=== PATIENT | male | born 1945 | race Caucasian/White ===

== ENCOUNTER 2021-11-13 11:56 | Observation (INO) | payer MEDICARE, SELFPAY ==
[2021-11-13] VITALS (9 sets, daily range): BP systolic 103–175; BP diastolic 55–84; PULSE 52–57; RESP 12–18; TEMP 35.9–36.8; O2SAT 97–100; BMI 26.4
--- NOTE | ~2021-11-13 | XR_ITS ---
EXAMINATION: XR chest 1V portable INDICATION: Transient alteration of awareness TECHNIQUE: Portable AP chest at 1320 hours COMPARISON: 12/21/2012 FINDINGS: The lungs are free of acute opacities. No pleural effusion or pneumothorax. Cardiomegaly is noted. There are changes of interval cardiac surgery. IMPRESSION: 1. No acute cardiopulmonary abnormality. Reviewed, dictated and finalized at location B.
--- NOTE | ~2021-11-13 | US_ITS ---
EXAMINATION: US carotid duplex BI DATE: 11/16/2021 11:40 INDICATION: Syncope. Cerebral atherosclerosis. TECHNIQUE: Grayscale, color Doppler, and pulsed Doppler images of the cervical carotid arteries were obtained. The degree of vessel stenosis is placed in one of the following categories: normal, <50%, 5 0-69%, >=70% but less than near-occlusion, near-occlusion, or total occlusion. Note that percent sten osis relative to normal distal artery lumen diameter is indirectly measured from velocity measurement s as described by Mo, et al. Radiology 2003; 229:340-346. COMPARISON: None. FINDINGS: RIGHT: The right common carotid artery (CCA) peak systolic velocity (PSV) is 57 cm/s. The right internal car otid artery (ICA) PSV is 119 cm/s. The right ICA end-diastolic velocity (EDV) is 25 cm/s. The right I CA/CCA PSV ratio is 2.1. Grayscale and color Doppler images yield an estimate of <50% diameter reduct ion from plaque in the ICA. The external carotid artery (ECA) PSV is 119 cm/s. There is antegrade imelda w in the right vertebral artery. LEFT: The left CCA PSV is 81 cm/s. The left ICA PSV is 84 cm/s. The left ICA EDV is 20 cm/s. The left ICA/C CA PSV ratio is 1.0. Grayscale and color Doppler images yield an estimate of <50% diameter reduction from plaque in the ICA. The ECA PSV is 94 cm/s. There is antegrade flow in the left vertebral artery. IMPRESSION: 1. <50% stenosis in the right internal carotid artery. 2. <50% stenosis in the left internal carotid artery. Reviewed, dictated and finalized at location A.
--- NOTE | ~2021-11-13 | CT_ITS ---
EXAMINATION: CT brain wo con DATE: 11/13/2021 14:32 INDICATION: Near syncope. TECHNIQUE: Computed tomography (CT) of the head was performed without intravenous contrast. The mA wa s adjusted according to patient size. Iterative reconstruction technique was employed. The dose-lengt h product was 605.33 mGy-cm. COMPARISON: Head CT 06/10/2015 FINDINGS: There are scattered areas of low attenuation in the cerebral white matter. There is no intr acranial hemorrhage, acute infarction, or abnormal intracranial mass lesion. The ventricles are aydi l in size. There are likely changes of ocular lens replacement surgeries. There is a chronic radiopaq ue foreign body in superior left orbit. The mastoid air cells are normal. There is mild mucosal thick ening in the paranasal sinuses. IMPRESSION: 1. Worsened extensive nonspecific cerebral white matter disease, which likely represents chronic smal l vessel ischemic disease. Reviewed, dictated and finalized at location A. IMPRESSION: 1. Worsened extensive nonspecific cerebral white matter disease, which likely r epresents chronic small vessel ischemic disease.
--- NOTE | 2021-11-13 12:05 | ECG_ITS ---
Measurements Intervals [place] Rate: 52 P: 10 [place]: 193 QRS: 29 QRSD: 87 T: 68 QT: 443 QTc: 414 Interpretive Statements SINUS BRADYCARDIA BORDERLINE ST-T WAVE ABNORMALITY- ANTEROLAT/HIGH LAT LEADS BORDERLINE ECG NO PREVIOUS ECG AVAILABLE FOR COMPARISON Electronically Signed On 11-13-2021 12:40:39 CDT by Hayden Johnston D.O.
[2021-11-13 12:21] LABS: Basophils Percent Auto 0.5 % (0.2-1.2); Eosinophils Absolute Auto 0.2 K/mm3 (0-0.3); Eosinophils Percent Auto 3.3 % (0-4.4); Hemoglobin 15.4 g/dL (14.0-18.0); Immature Granulocyte Absolute 0.01 K/mm3 (0.00-0.031); Immature Granulocyte Percent A 0.2 % (0-0.5); Lymphocytes Absolute Auto 1.86 K/mm3 (0.9-3.2); Lymphocytes Percent Auto 30.2 % (18.3-44.2); Mean Corpuscular HGB Conc 34.2 g/dl (32-36); Mean Corpuscular Hemoglobin 30.9 pg (26-34); Mean Corpuscular Volume 90.2 fl (80-100); Mean Platelet Volume 11.1 fl (7.4-10.4); Monocytes Absolute Auto 0.5 K/mm3 (0.1-0.6); Monocytes Percent Auto 8.8 % (2.6-8.5); Neutrophils Absolute Auto 3.5 K/mm3 (1.3-6.7); Platelet Count Result 222 k/mm3 (150-375); Red Blood Count 4.99 M/mm3 (4.6-6.20); Red Cell Distribution Width 12.5 % (11.5-14.5); White Blood Count 6.2 K/mm3 (4.5-10.0)
[2021-11-13 12:33] LABS: Alanine Aminotransferase 24 U/L (6-50); Albumin Level 3.9 g/dL (3.5-5.1); Alkaline Phosphatase 60 U/L (38-126); Anion Gap 12 mmol/L (8-16); Aspartate Amino Transferase 22 U/L (17-59); Bilirubin,Total 0.5 mg/dL (0.2-1.3); Blood Urea Nitrogen 20 mg/dL (9-20); Calcium 8.3 mg/dL (8.4-10.2); Carbon Dioxide 23 mmol/L (22-30); Chloride 106 mmol/L (98-107); Estimated CRCL calculation 47 ml/min; Estimated Glomerular Filt Rate 59; Glucose 211 mg/dL (65-110); Sodium 141 mmol/L (137-145)
--- NOTE | 2021-11-13 12:37 | ED.GENADULT ---
HPI - General Adult General Chief complaint: Syncope Stated complaint: near syncope Time Seen by Provider: 11/13/21 12:25 Source: patient, family, EMS and RN notes reviewed Mode of arrival: EMS Limitations: no limitations History of Present Illness HPI narrative: 76 years old white male brought to the emergency room by ambulance from home with his who is telling me that patient was sitting on a chair and could not get up, turned white, telling his that he is generally tired and weak with slurred speech. The and his daughter was able to manage to assist him to go to the couch, once sat on the couch became unresponsive for roughly 5 minutes. Patient is telling me that he was able to hear the conversation between his daughter and about calling the ambulance but he was not able to respond to them. The is telling me that patient cannot sleep, because have a lot of nightmares,, DNR, the beginning of dementia. 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 Currently patient laying down in bed, denying any complaints except chronic fatigue and tiredness. He denies any headache, chest pain, shortness of breath, focal neurodeficit. Related Data Allergies Allergy/AdvReac Type Severity Reaction Status Date / Time alprazolam Allergy Intermediate Confusion Verified 04/09/14 12:26 zolpidem Allergy Intermediate Confusion Verified 04/09/14 12:26 lorazepam Allergy Unknown Confusion Verified 04/09/14 12:26 Review of Systems Review of Systems: All systems reviewed & are unremarkable except as noted in HPI and below Course Vital Signs Vital signs: Vital Signs Temperature 36.5 C 11/13/21 11:52 Pulse Rate 53 L 11/13/21 11:52 Respiratory Rate 15 11/13/21 11:52 Blood Pressure 126/62 11/13/21 11:52 Pulse Oximetry 97 11/13/21 11:52 Oxygen Delivery Room Air 11/13/21 11:52 Temperature 36.5 C 11/13/21 11:52 Pulse Rate 53 L 11/13/21 11:52 Respiratory Rate 15 11/13/21 11:52 Blood Pressure 126/62 11/13/21 11:52 Pulse Oximetry 97 11/13/21 11:52 Oxygen Delivery Room Air 11/13/21 11:52 Medical Decision Making Differential Diagnosis Differential Diagnosis: General tiredness, insomnia, and responsiveness, bradycardia arrhythmia, TIA Vital Signs Vital Signs: Vital Signs Temperature 36.5 C 11/13/21 11:52 Pulse Rate 53 L 11/13/21 11:52 Respiratory Rate 15 11/13/21 11:52 Blood Pressure 126/62 11/13/21 11:52 Pulse Oximetry 97 11/13/21 11:52 Oxygen Delivery Room Air 11/13/21 11:52 Temperature 36.5 C 11/13/21 11:52 Pulse Rate 53 L 11/13/21 11:52 Respiratory Rate 15 11/13/21 11:52 Blood Pressure 126/62 11/13/21 11:52 Pulse Oximetry 97 11/13/21 11:52 Oxygen Delivery Room Air 11/13/21 11:52 Lab Data Result diagrams: 11/13/21 12:12 11/13/21 12:12 Labs: Lab Results 11/13/21 11/13/21 Range/Units 12:12 12:12 WBC 6.2 (4.5-10.0) K/mm3 RBC 4.99 (4.6-6.20) M/mm3 Hgb 15.4 (14.0-18.0) g/dL Hct 45.0 (42.0-52.0) % MCV 90.2 (80-100) fl MCH 30.9 (26-34) pg MCHC 34.2 (32-36) g/dl RDW 12.5 (11.5-14.5) % Plt Count 222 (150-375) k/mm3 MPV 11.1 H (7.4-10.4) fl Immature Gran % (Auto) 0.2 (0-0.5) % Neut % (Auto) 57.0 (45.5-73.1) % Lymph % (Auto) 30.2 (18.3-44.2) % Trigg % (Auto) 8.8 H (2.6-8.5) % Eos % (Auto) 3.3 (0-4.4) % Baso % (Auto) 0.5 (0.2-1.2) % Lymph # (Auto) 1.86 (0.9-3.2) K/mm3 Trigg # (Auto) 0.5 (0.1-0.6) K/mm3 Eos # (Auto) 0.2 (0-0.3) K/mm3 Baso # (Auto) 0.0 (0.0-0.1) K/mm3 Abs Immat Gran (auto) 0.01 (0.00-0.031) K/mm3 Absolute Neuts (auto) 3.5 (1.3-6.7) K/mm3 Absolute Nucleated RBC 0.0 (0.0-0.012) K/mm3 Nucleated RBC % 0.0 (0.0-0.2) % Sodium 141 (137-145) mmol/L Potassium 4.0 (3.4-
[2021-11-13 13:44] LABS: INR 1.1; Prothrombin Time 13.7 Seconds (11.1-14.7)
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
[2021-11-13 15:30] LABS: Troponin I < 0.012 ng/mL (0.000-0.034)
--- NOTE | 2021-11-13 15:57 | ADMGEN ---
This patient, Max Talbot, was admitted to IMU Room 232-01. Patient/family oriented to hospital policies and general routines including ID bracelet, bed and alarms, visiting hours, pain management, procedures, bathroom and other care routines, personal items, smoking policy, room service/diet, and visiting hours. Information on how to activate the Rapid Response Team has been discussed. Patient/Family are encouraged to report perceived risks to care and to ask questions if they do not understand what they are told or what they should do.
[2021-11-13 18:20] LABS: Troponin I < 0.012 ng/mL (0.000-0.034)
[2021-11-13 18:34] LABS: Glucose Point of Care 191 mg/dl (65-105)
[2021-11-13 20:52] LABS: Troponin I < 0.012 ng/mL (0.000-0.034)
[2021-11-13] MEDS: buPROPion HCL SR (12 HR) 150 MG TAB PO (23:55)
[2021-11-13] MEDS: traZODone HCL 50 MG TABLET 150 MG PO (23:55)
[2021-11-13] MEDS: SIMVASTATIN 20 MG TABLET PO (23:55)
[2021-11-14] VITALS (18 sets, daily range): BP systolic 112–155; BP diastolic 62–89; PULSE 53–80; RESP 16–20; TEMP 36.3–36.9; O2SAT 97–100
[2021-11-14 00:16] LABS: Hemoglobin A1C 6.4 % (<5.7)
[2021-11-14 04:55] LABS: Hematocrit 45.5 % (42.0-52.0); Hemoglobin 15.3 g/dL (14.0-18.0); Mean Corpuscular HGB Conc 33.6 g/dl (32-36); Mean Corpuscular Hemoglobin 31.2 pg (26-34); Mean Corpuscular Volume 92.9 fl (80-100); Mean Platelet Volume 11.1 fl (7.4-10.4); Platelet Count Result 204 k/mm3 (150-375); Red Cell Distribution Width 12.5 % (11.5-14.5); White Blood Count 8.6 K/mm3 (4.5-10.0)
[2021-11-14 05:09] LABS: Anion Gap 11 mmol/L (8-16); Blood Urea Nitrogen 17 mg/dL (9-20); Calcium 8.4 mg/dL (8.4-10.2); Carbon Dioxide 26 mmol/L (22-30); Chloride 106 mmol/L (98-107); Estimated CRCL calculation 47 ml/min; Estimated Glomerular Filt Rate 59; Glucose 146 mg/dL (65-110); Magnesium 2.2 mg/dL (1.6-2.3); Sodium 143 mmol/L (137-145)
--- NOTE | 2021-11-14 06:00 | ECG_ITS ---
Measurements Intervals [place] Rate: 68 P: 32 DE: 180 QRS: 47 QRSD: 91 T: 69 QT: 406 QTc: 433 Interpretive Statements SINUS RHYTHM T WAVE ABNORMALITY IN ANTERIOR LEADS- CONSIDER ISCHEMIA ABNORMAL ECG COMPARED TO ECG 11/13/2021 12:03:31 T WAVE ABNORMALITY IN ANTERIOR LEADS- CONSIDER ISCHEMIA NOW PRESENT Electronically Signed On 11-14-2021 14:52:27 CDT by Hayden Johnston D.O.
[2021-11-14 08:11] LABS: Glucose Point of Care 171 mg/dl (65-105)
[2021-11-14] MEDS: ASPIRIN 81 MG ENTERIC TABLET PO (09:11)
[2021-11-14] MEDS: CELECOXIB 200 MG CAPSULE PO (09:11)
[2021-11-14] MEDS: metFORMIN HCL 500 MG TABLET PO ×2 (09:11→18:58)
[2021-11-14] MEDS: hydroCHLOROthiazide 12.5 MG CAPSULE PO (09:12)
[2021-11-14] MEDS: lisinopriL 10 MG TABLET PO (09:12)
[2021-11-14] MEDS: buPROPion HCL SR (12 HR) 150 MG TAB PO ×2 (09:12→20:17)
--- NOTE | 2021-11-14 10:18 | PM.IMPN ---
Progress Note: A&P Assessment and Plan (1) Near syncope: Code(s): R55 - Syncope and collapse Status: Acute (2) Bradycardia: Code(s): R00.1 - Bradycardia, unspecified Status: Acute (3) Hypertension: Code(s): I10 - Essential (primary) hypertension Status: Acute (4) Type 2 diabetes mellitus: Code(s): E11.9 - Type 2 diabetes mellitus without complications Status: Acute Plan The patient reports being in his usual state of health this morning. Not long prior to arrival he was ambulating to the living room when he suddenly felt exhausted and tired. Family members noted that he was pale and weak and they helped him to the couch. He did not talk to them for upwards of 5 minutes however it sounds as though he was following commands, squeezing the 's hands. On EMS arrival his blood pressures were soft, and the 90s over 50s, but improved with IV fluid rehydration. I am wondering if perhaps his blood pressure dropped when he stood up thus will initiate fall precautions and check orthostatic vital signs Q shift. He has been in sinus bradycardia since arrival and does not know his baseline heart rate. His home medication lists both metoprolol and bisoprolol and I am not certain if he is taking both of these medications, and if so this may very well be the etiology of his bradycardia. He will be monitor on telemetry to rule out sinus pause. May need an event monitor on discharge. His labs were reviewed and they are reassuring. Random glucose was 211 thus will check a hemoglobin A1c. Initiate sliding scale insulin, Accu-Cheks, and hypoglycemic protocol. His home medications will be reviewed and resumed as appropriate. 11/14/21 melatonin ace c/s neuro syncope workup in progress cont current care PT/OT Subjective Date/time seen: 11/14/21 10:18 pt lying in bed, at bedside reports that she is concerned he had a stroke, orvillesocrates is incosistent w stroke symptoms but neurology consult has been requested Review of Systems Review of Systems: All systems reviewed & are unremarkable except as noted in HPI and below Exam Narrative: General: Well-developed male supine in bed. Weight: 81.2 kg. BMI: 26.4. HEENT: Cornea is cloudy, right greater than left. Right pupil is not reactive. Left pupil is approximately 5 mm. Sclera anicteric. Oral mucosa moist. Oropharynx clear. Neck: Supple. No obvious carotid bruits. Respiratory: Lungs are clear to auscultation bilaterally. Cardiovascular: Regular rate and rhythm with S1-S2. Gastrointestinal: Abdomen is soft, nontender, and nondistended with positive bowel sounds. Skin: Warm and dry. No rash or lesions on limited exam. Extremities: No cyanosis, clubbing, or edema. Radial and pedal pulses intact. Neurological: Alert. Cranial nerves 2-12 are grossly intact. 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 Psychiatric: Pleasant and cooperative. Appropriate mood. Slightly odd affect. Objective Data Vital Signs Vital Signs: Vital Signs - 24 hr 11/13/21 11:52 11/13/21 13:09 11/13/21 14:14 Temperature 97.7 F Pulse Rate 53 L 52 L 53 L Respiratory Rate 15 12 14 Blood Pressure 126/62 103/55 L 123/59 L Pulse Oximetry 97 97 98 Oxygen Delivery Room Air 11/13/21 15:08 11/13/21 15:33 11/13/21 16:00 Temperature 98.3 F 96.7 F L Pulse Rate 53 L 53 L 54 L Respiratory Rate 13 16 16 Blood Pressure 130/70 175/84 H Pulse Oximetry 98 98 100 Oxygen Delivery 11/13/21 20:00 11/13/21 23:26 11/13/21 20:00 Temperature 98.1 F 97.6 F Pulse Rate 57 L 57 L 57 L Respiratory Rate 18 18 18 Blood Pressure 133/71 153/58 H Pulse Oximetry 98 100 98 Oxygen Delivery Room Air 11/13/21 20:00 11/13/21 22:00 11/14/21 00:00 Temperature Pulse Rate 56 L 54 L 57 L Respiratory Rate 18 Blood Pressure Pulse Oximetry 100 Oxygen Delivery Room Air 11/14/21 00:00 11/14/21 02:00 11/14/21 04:00 Temperature Puls
[2021-11-14 11:56] LABS: Glucose Point of Care 266 mg/dl (65-105)
[2021-11-14] MEDS: INSULIN ASPART (*BKC) 100 UNITS/ML SUB-Q (11:56)
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
[2021-11-14 17:42] LABS: Glucose Point of Care 147 mg/dl (65-105)
[2021-11-14 20:15] LABS: Glucose Point of Care 261 mg/dl (65-105)
[2021-11-14] MEDS: MELATONIN 5 MG TABLET PO (20:17)
[2021-11-14] MEDS: traZODone HCL 50 MG TABLET 150 MG PO (20:17)
[2021-11-14] MEDS: SIMVASTATIN 20 MG TABLET PO (20:17)
[2021-11-15] VITALS (16 sets, daily range): BP systolic 102–148; BP diastolic 60–78; PULSE 54–80; RESP 12–20; TEMP 36.1–36.7; O2SAT 97–100
[2021-11-15 08:09] LABS: Glucose Point of Care 187 mg/dl (65-105)
[2021-11-15] MEDS: metFORMIN HCL 500 MG TABLET PO ×2 (09:23→17:40)
[2021-11-15] MEDS: buPROPion HCL SR (12 HR) 150 MG TAB PO ×2 (09:23→20:41)
[2021-11-15] MEDS: CELECOXIB 200 MG CAPSULE PO (09:24)
[2021-11-15] MEDS: ASPIRIN 81 MG ENTERIC TABLET PO (09:24)
[2021-11-15] MEDS: lisinopriL 10 MG TABLET PO (09:24)
[2021-11-15] MEDS: hydroCHLOROthiazide 12.5 MG CAPSULE PO (09:24)
[2021-11-15 09:57] LABS: Troponin I < 0.012 ng/mL (0.000-0.034)
[2021-11-15 13:17] LABS: Glucose Point of Care 180 mg/dl (65-105)
--- NOTE | 2021-11-15 14:41 | PCPTNOTE ---
Stopped orders for physical therapy evaluation orders at 1441 on 11/15. Completed PT eval on 11/14 and determined pt was independent. Spoke to MD regarding second orders, per MD second orders were put into monitor HR during ambulation. Spoke with nurse Ashley, she is going to complete this and report to MD.
--- NOTE | 2021-11-15 15:46 | PC.NURSE ---
Patient walked with this nurse from room 232 to 208 - the only assist was standby and directional guide, as patient is legally blind. Patient heart rate was noted to remain between 77- 81, without shortness of breath, dizziness, or complaints of unsteadiness. Dr. Guillen advised.
--- NOTE | 2021-11-15 16:24 | PM.IMPN ---
Progress Note: A&P Assessment and Plan (1) Near syncope: Code(s): R55 - Syncope and collapse Status: Acute (2) Bradycardia: Code(s): R00.1 - Bradycardia, unspecified Status: Acute (3) Hypertension: Code(s): I10 - Essential (primary) hypertension Status: Acute (4) Type 2 diabetes mellitus: Code(s): E11.9 - Type 2 diabetes mellitus without complications Status: Acute Plan The patient reports being in his usual state of health this morning. Not long prior to arrival he was ambulating to the living room when he suddenly felt exhausted and tired. Family members noted that he was pale and weak and they helped him to the couch. He did not talk to them for upwards of 5 minutes however it sounds as though he was following commands, squeezing the 's hands. On EMS arrival his blood pressures were soft, and the 90s over 50s, but improved with IV fluid rehydration. I am wondering if perhaps his blood pressure dropped when he stood up thus will initiate fall precautions and check orthostatic vital signs Q shift. He has been in sinus bradycardia since arrival and does not know his baseline heart rate. His home medication lists both metoprolol and bisoprolol and I am not certain if he is taking both of these medications, and if so this may very well be the etiology of his bradycardia. He will be monitor on telemetry to rule out sinus pause. May need an event monitor on discharge. His labs were reviewed and they are reassuring. Random glucose was 211 thus will check a hemoglobin A1c. Initiate sliding scale insulin, Accu-Cheks, and hypoglycemic protocol. His home medications will be reviewed and resumed as appropriate. 11/14/21 melatonin colace c/s neuro syncope workup in progress cont current care PT/OT 11/15/21 ECHO pending US carotid pending cont tele low dose BB dc HCTZ cont low dose ACEi anticipate dc tomorrow Subjective Date/time seen: 11/15/21 16:24 pt doing ok no new complaints ambulated w RN and PT HR up to 80s appropriate exertional response off BB h/o [place] pt and spouse agree to stay for monitoring while restarting these meds Exam Narrative: General: Well-developed male supine in bed. Weight: 81.2 kg. BMI: 26.4. HEENT: Corneas cloudy, right greater than left. Right pupil is not reactive. Left pupil is approximately 5 mm. Sclera anicteric. Oral mucosa moist. Oropharynx clear. Neck: Supple. No obvious carotid bruits. Respiratory: Lungs are clear to auscultation bilaterally. Cardiovascular: Regular rate and rhythm with S1-S2. Gastrointestinal: Abdomen is soft, nontender, and nondistended with positive bowel sounds. Skin: Warm and dry. No rash or lesions on limited exam. Extremities: No cyanosis, clubbing, or edema. Radial and pedal pulses intact. Neurological: Alert. Cranial nerves 2-12 are grossly intact. 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 Psychiatric: Pleasant and cooperative. Appropriate mood. Slightly odd affect. Objective Data Vital Signs Vital Signs: Vital Signs - 24 hr 11/14/21 18:00 11/14/21 20:00 11/14/21 20:00 Temperature 97.4 F L Pulse Rate 67 66 Respiratory Rate 20 Blood Pressure 131/89 153/68 H Pulse Oximetry 99 Oxygen Delivery 11/14/21 20:01 11/14/21 20:00 11/14/21 20:00 Temperature Pulse Rate 66 67 Respiratory Rate 20 Blood Pressure 132/63 Pulse Oximetry 99 Oxygen Delivery Room Air 11/14/21 21:51 11/14/21 23:37 11/15/21 00:00 Temperature 97.9 F Pulse Rate 73 70 70 Respiratory Rate 20 20 Blood Pressure 112/70 Pulse Oximetry 100 100 Oxygen Delivery Room Air 11/15/21 00:00 11/15/21 01:53 11/15/21 04:00 Temperature Pulse Rate 63 65 57 L Respiratory Rate Blood Pressure Pulse Oximetry Oxygen Delivery 11/15/21 04:00 11/15/21 04:00 11/15/21 06:00 Temperature 97.6 F Pulse Rate 58 L 57 L 54 L Respiratory Rate 20 20 Blood Pressure 104/60
[2021-11-15 16:55] LABS: Glucose Point of Care 220 mg/dl (65-105)
[2021-11-15] MEDS: INSULIN ASPART (*BKC) 100 UNITS/ML SUB-Q (17:40)
[2021-11-15 20:32] LABS: Glucose Point of Care 227 mg/dl (65-105)
[2021-11-15] MEDS: SIMVASTATIN 20 MG TABLET PO (20:42)
[2021-11-15] MEDS: traZODone HCL 50 MG TABLET 150 MG PO (20:42)
[2021-11-15] MEDS: METOPROLOL TARTRATE 6.25 MG TABLET PO (20:42)
[2021-11-15] MEDS: MELATONIN 5 MG TABLET PO (20:43)
[2021-11-16] VITALS (12 sets, daily range): BP systolic 114–138; BP diastolic 67–71; PULSE 61–78; RESP 18–20; TEMP 36.1–36.5; O2SAT 98–100
--- NOTE | 2021-11-16 | ECHO_ITS ---
Patient Info Name: Max Allen Field Age: 76 years : 1945 Gender: Male Ht: 69 in Wt: 179 lbs BSA: 2.00 m2 HR: 63 bpm BP: 126 / 71 mmHg Heart Rhythm: Sinus Rhythm Technical Quality: Fair Exam Date: 11/16/2021 8:43 AM Exam Location: [facility] Patient Status: Outpatient Admit Date: 11/13/2021 Staff Ordering Physician: Rylee Guillen MD Capsule Filling Machine Operator: Patricia Rosa RDCS Attending Provider: Lexx Lara MD Referring Physician: Mindy VILLASENOR; Exam Type: CA echo doppler color flow Study Info Indications R55 - Syncope and collapse Complete two-dimensional, color flow and Doppler transthoracic echocardiogram is performed. Summary 1. Complete two-dimensional, color flow and Doppler transthoracic echocardiogram is performed. 2. Small left ventricular cavity size. 3. Left ventricular systolic function is normal, estimated at 65-70%. 4. There is moderately increased left ventricular wall thickness with speckled appearance of the myocardium. consider infiltrative process such as amyloidosis if clinically indicated. 5. The left ventricular diastolic function is grade I diastolic dysfunction. 6. There is no mitral valve regurgitation. 7. There is no aortic valve stenosis. 8. There is trace tricuspid valve regurgitation. 9. No pulmonary hypertension, estimated pulmonary arterial systolic pressure is 22 mmHg. Left Ventricle Small left ventricular cavity size. Left ventricular systolic function is normal, estimated at 65-70%. There is moderately increased left ventricular wall thickness with speckled appearance of the myocardium. consider infiltrative process such as amyloidosis if clinically indicated. The left ventricular diastolic function is grade I diastolic dysfunction. Right Ventricle Right ventricular chamber dimension is normal. Right ventricular systolic function is normal. Left Atria Left atrial chamber dimension is normal. Right Atria Right atrial chamber dimension is normal. Aortic Valve The aortic valve is not well visualized. There is no aortic valve stenosis. There is no aortic valve regurgitation. Pulmonic Valve The pulmonic valve is not well visualized. Mitral Valve The mitral valve has thickened leaflets. There is no mitral valve regurgitation. The mitral valve annulus is mildly calcified. Tricuspid Valve The tricuspid valve leaflets are normal. There is trace tricuspid valve regurgitation. No pulmonary hypertension, estimated pulmonary arterial systolic pressure is 22 mmHg. Pericardium/Pleural The pericardium appears normal. There is no pericardial effusion. Inferior Vena Cava Normal inferior vena cava with >50% collapse upon inspiration consistent with normal right atrial pressure, 5 mmHg. Aorta The aortic root size at the sinus of Valsalva is mildly dilated. There is moderate-severe aortic atherosclerosis. Left Ventricular Outflow Tract Name Value Normal LVOT 2D LVOT Diameter 2.1 cm LVOT Doppler LVOT Peak Gradient 3 mmHg LVOT Mean Gradient 1 mmHg LVOT VTI
[2021-11-16 05:23] LABS: Basophils Absolute Auto 0.1 K/mm3 (0.0-0.1); Basophils Percent Auto 0.6 % (0.2-1.2); Eosinophils Absolute Auto 0.5 K/mm3 (0-0.3); Eosinophils Percent Auto 5.8 % (0-4.4); Hematocrit 46.5 % (42.0-52.0); Hemoglobin 15.7 g/dL (14.0-18.0); Immature Granulocyte Absolute 0.02 K/mm3 (0.00-0.031); Immature Granulocyte Percent A 0.3 % (0-0.5); Mean Corpuscular HGB Conc 33.8 g/dl (32-36); Mean Corpuscular Hemoglobin 30.6 pg (26-34); Mean Corpuscular Volume 90.6 fl (80-100); Mean Platelet Volume 11.5 fl (7.4-10.4); Monocytes Absolute Auto 0.7 K/mm3 (0.1-0.6); Neutrophils Absolute Auto 3.8 K/mm3 (1.3-6.7); Neutrophils Percent Auto 48.3 % (45.5-73.1); Platelet Count Result 228 k/mm3 (150-375); Red Blood Count 5.13 M/mm3 (4.6-6.20); Red Cell Distribution Width 12.2 % (11.5-14.5); White Blood Count 7.8 K/mm3 (4.5-10.0)
[2021-11-16 05:38] LABS: Anion Gap 12 mmol/L (8-16); Blood Urea Nitrogen 17 mg/dL (9-20); Calcium 8.4 mg/dL (8.4-10.2); Carbon Dioxide 25 mmol/L (22-30); Chloride 102 mmol/L (98-107); Estimated CRCL calculation 52 ml/min; Estimated Glomerular Filt Rate > 60; Glucose 176 mg/dL (65-110); Potassium 3.8 mmol/L (3.4-5.0); Sodium 139 mmol/L (137-145)
[2021-11-16 08:02] LABS: Glucose Point of Care 228 mg/dl (65-105)
[2021-11-16] MEDS: INSULIN ASPART (*BKC) 100 UNITS/ML SUB-Q (09:15)
[2021-11-16] MEDS: metFORMIN HCL 500 MG TABLET PO (09:16)
[2021-11-16] MEDS: ASPIRIN 81 MG ENTERIC TABLET PO (09:16)
[2021-11-16] MEDS: METOPROLOL TARTRATE 6.25 MG TABLET PO (09:16)
[2021-11-16] MEDS: buPROPion HCL SR (12 HR) 150 MG TAB PO (09:16)
[2021-11-16] MEDS: CELECOXIB 200 MG CAPSULE PO (09:17)
[2021-11-16] MEDS: lisinopriL 10 MG TABLET PO (09:17)
[2021-11-16 14:41] LABS: Glucose Point of Care 167 mg/dl (65-105)
--- NOTE | 2021-11-16 15:15 | PM.DS ---
DS: Admitting Diagnosis Discharge Date 11/16/21 Admitting Diagnosis (1) Near syncope: ?Code(s): R55 - Syncope and collapse ?Status:?Acute (2) Bradycardia: ?Code(s): R00.1 - Bradycardia, unspecified ?Status:?Acute (3) Hypertension: ?Code(s): I10 - Essential (primary) hypertension ?Status:?Acute (4) Type 2 diabetes mellitus: ?Code(s): E11.9 - Type 2 diabetes mellitus without complications ?Status:?Acute DS: Discharge Diagnosis Discharge Diagnosis (1) Near syncope: Code(s): R55 - Syncope and collapse Status: Acute (2) Bradycardia: Code(s): R00.1 - Bradycardia, unspecified Status: Acute (3) Hypertension: Code(s): I10 - Essential (primary) hypertension Status: Acute (4) Type 2 diabetes mellitus: Code(s): E11.9 - Type 2 diabetes mellitus without complications Status: Acute DS: Summary Hospital Course Reason for hospitalization: Chief Complaint: Unresponsive episode. 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 He felt okay when he got up this morning, had breakfast and took his medications which his separates for him each day. Not long prior to arrival he was walking from the dining room to the living room when he began to feel weak and exhausted. His daughter and were nearby and they noticed that he appeared very pale and they had to help him to the couch. Once he got on the couch he was reportedly not responsive however goes on to say that he would squeeze her hands when she asked him to though he did not answer any questions. The patient reports that he was able to hear what they were saying but he could not talk for some reason. He was alert on EMS arrival. Heart rate was 51 and blood pressure was 93/55. IV was inserted and he was given an IV fluid bolus with improvement in his blood pressures. labs and imaging done the emergency department were relatively unremarkable. Aside from bradycardia in the low to mid 50s, his vital signs have remained stable. At the time my evaluation he does not really have any specific complaints and he does not think what happened today was a big deal, I know what happened, I was just tired. He does not know his resting heart rate. He has bisoprolol and metoprolol listed on his home medication list though it is not clear if he is taking both. He and his deny that he could have accidentally taken too much medication today. He has not had lightheadedness or dizziness. He also denies fever, chills, sweats, cold and flu symptoms, chest pain, shortness of breath, nausea, and vomiting. Hospital Course: The patient reports being in his usual state of health this morning.? Not long prior to arrival he was ambulating to the living room when he suddenly felt exhausted and tired. Family members noted that he was pale and weak and they helped him to the couch. He did not talk to them for upwards of 5 minutes however it sounds as though he was following commands, squeezing the 's hands. On EMS arrival his blood pressures were soft, and the 90s over 50s, but improved with IV fluid rehydration. I am wondering if perhaps his blood pressure dropped when he stood up thus will initiate fall precautions and check orthostatic vital signs Q shift. He has been in sinus bradycardia since arrival and does not know his baseline heart rate. His home medication lists both metoprolol and bisoprolol and I am not certain if he is taking both of these medications, and if so this may very well be the etiology of his bradycardia. He will be monitor on telemetry to rule out sinus pause. May need an event monitor on discharge. His labs were reviewed and they are reassuring. Random glucose was 2
== END 2021-11-16 16:09 | disposition home or self-care (01) ==
LOC: ANHED 14:50 → ANHIMU 11-14 13:40
PROVIDERS: Emergency Medicine; Physician Assistant; Admitting Provider Chiropractor; Emergency Provider Emergency Medicine; PCP Family Medicine; Visit Provider Hospitalist
DX: R55 Syncope and collapse (principal); R00.1 Bradycardia, unspecified; I10 Essential (primary) hypertension; H40.9 Unspecified glaucoma; H54.7 Unspecified visual loss; R53.1 Weakness; R47.81 Slurred speech; Z66 Do not resuscitate; F03.90 Unspecified dementia, unspecified severity, without behavioral disturbance, psychotic disturbance, mood disturbance, and anxiety; E78.5 Hyperlipidemia, unspecified; R94.31 Abnormal electrocardiogram [ECG] [EKG]; Z95.1 Presence of aortocoronary bypass graft; R53.82 Chronic fatigue, unspecified; R90.82 White matter disease, unspecified; R29.703 NIHSS score 3; I25.10 Atherosclerotic heart disease of native coronary artery without angina pectoris; G47.30 Sleep apnea, unspecified; F32.A Depression, unspecified; I25.2 Old myocardial infarction; M19.90 Unspecified osteoarthritis, unspecified site; Z87.891 Personal history of nicotine dependence; Z79.82 Long term (current) use of aspirin; Z79.84 Long term (current) use of oral hypoglycemic drugs; Z79.899 Other long term (current) drug therapy; Z79.4 Long term (current) use of insulin; Z83.3 Family history of diabetes mellitus; Z82.49 Family history of ischemic heart disease and other diseases of the circulatory system
CPT/HCPCS: 36415; 70450; 71045; 80048; 80053; 82948; 83036; 83735; 84443; 84484; 85025; 85027; 85610; 85730; 93005; 93306; 93880; 97161; 97165; 99285; A9270; G0378; J1815

== ENCOUNTER 2022-09-04 09:50 | Observation (INO) | payer MEDICARE, SELFPAY ==
[2022-09-04] VITALS (16 sets, daily range): BP systolic 136–189; BP diastolic 76–99; PULSE 58–84; RESP 9–18; TEMP 36.2–36.7; O2SAT 94–100
--- NOTE | ~2022-09-04 | XR_ITS ---
EXAMINATION: XR retrograde pyelo w/stent LT DATE: 09/04/2022 15:26 INDICATION: Obstructing left ureteral stone TECHNIQUE: 4 fluoroscopic images of the abdomen and pelvis were obtained during procedure performed carmen Mejia. Radiologist was not present for the imaging or procedure. The amount of fluoroscopy time used during this procedure was 1.5 minutes. COMPARISON: CT dated 09/04/2022 FINDINGS: Residual excreted contrast is seen in the renal collecting systems and bladder from the earlier contr ast-enhanced CT. No right-sided hydronephrosis. There is moderate left hydroureteronephrosis proximal to an ovoid stone in the mid left ureter. Aortic advanced beyond the stone and coiled in the upper p ole of the left kidney. Subsequent images demonstrate placement of a left intrarenal stent with loops formed in upper pole calyx of the left kidney and in the bladder. The mid left ureteral stone is no longer visualized and has either change in position or been extracted. IMPRESSION: 1. Obstructing stone in the mid left ureter not seen on the final images in either extracted or engle e in position. Correlate with procedure note for further detail. 2. Placement of a left internal ureteral stent in expected position. Reviewed, dictated and finalized at location A. IMPRESSION: 1. Obstructing stone in the mid left ureter not seen on the final images in eit her extracted or change in position. Correlate with procedure note for further detail. 2. Placement of a left internal ureteral stent in expected position.
--- NOTE | ~2022-09-04 | XR_ITS ---
EXAMINATION: XR abdomen/kub 1V DATE: 09/05/2022 11:45 INDICATION: Left ureteral stone TECHNIQUE: A supine view of the abdomen was obtained. COMPARISON: CT and fluoroscopically studies dated 09/04/2022 FINDINGS: Again seen is a left internal ureteral stent in expected position with loops formed over the upper po le of the left kidney and the bladder. Ovoid density projecting over the stent and the left transvers e process of L5 likely corresponding to the previous noted 9 mm ureteral stone. There are a few phleb oliths and atherosclerotic calcifications in the left hemipelvis projecting inferior and lateral to t he stent. No dilated loops of bowel to suggest obstruction. IMPRESSION: 1. Persistent stone in the proximal to mid left ureter alongside a left internal ureteral stent which remains in expected position. Reviewed, dictated and finalized at location A. IMPRESSION: 1. Persistent stone in the proximal to mid left ureter alongside a left interna l ureteral stent which remains in expected position.
--- NOTE | ~2022-09-04 | CT_ITS ---
EXAMINATION: CT abdomen pelvis w con INDICATION: Low back pain after fall TECHNIQUE: Computed tomographic images of the abdomen and pelvis were obtained after the administrati on of 100 cc of Omnipaque 350 intravenous contrast. The dose-length product (DLP) was 804.10 mGy-cm. Automated exposure control and iterative reconstruction technique were employed. COMPARISON: 06/20/2015 FINDINGS: Minimal dependent atelectasis is present in the lung bases. The heart size is normal. There are minimally displaced posterolateral fractures of the left 10th and 11th ribs. There is a small le ft pleural effusion. The liver is diffusely low in attenuation when compared with the spleen, consist ent with hepatic steatosis. Punctate calcifications in an otherwise normal spleen likely represent he aled granulomatous disease. The pancreas, gallbladder, and adrenal glands are normal. There is a 9 mm stone of the proximal left ureter causing mild hydroureteronephrosis. There is a 4.6 cm cyst of the right kidney. There is calcified atherosclerosis of the aorta and many of the other arteries. No path ologically enlarged abdominal or pelvic lymph nodes are identified. No free intraperitoneal gas or ev idence of bowel obstruction. There are bilateral inguinal hernias containing fat. Colonic diverticulo sis is present without evidence of diverticulitis. The appendix is normal. There are bilateral L5 par s defects and lumbar spondylosis at L5-S1. IMPRESSION: 1. Acute minimally displaced posterolateral fractures of the left 10th and 11th ribs. 2. 9 mm obstructing stone of the proximal left ureter. 3. Diffuse hepatic steatosis. Reviewed, dictated and finalized at location A.
[2022-09-04] MEDS: ONDANSETRON INJ 4 MG/2 ML VIAL IV PUSH (10:37)
[2022-09-04] MEDS: MORPHINE SULFATE (*CRX) 4 MG/ML INJ IV PUSH (10:37)
[2022-09-04 10:40] LABS: Basophils Percent Auto 0.6 % (0.2-1.2); Eosinophils Absolute Auto 0.6 K/mm3 (0-0.3); Eosinophils Percent Auto 8.4 % (0-4.4); Hematocrit 42.7 % (42.0-52.0); Hemoglobin 14.3 g/dL (14.0-18.0); Immature Granulocyte Absolute 0.04 K/mm3 (0.00-0.031); Immature Granulocyte Percent A 0.6 % (0-0.5); Lymphocytes Absolute Auto 1.72 K/mm3 (0.9-3.2); Mean Corpuscular HGB Conc 33.5 g/dl (32-36); Mean Corpuscular Hemoglobin 30.6 pg (26-34); Mean Corpuscular Volume 91.2 fl (80-100); Mean Platelet Volume 10.7 fl (7.4-10.4); Monocytes Absolute Auto 0.6 K/mm3 (0.1-0.6); Monocytes Percent Auto 7.8 % (2.6-8.5); Neutrophils Absolute Auto 4.2 K/mm3 (1.3-6.7); Neutrophils Percent Auto 58.6 % (45.5-73.1); Platelet Count Result 183 k/mm3 (150-375); Red Blood Count 4.68 M/mm3 (4.6-6.20); Red Cell Distribution Width 12.2 % (11.5-14.5); White Blood Count 7.2 K/mm3 (4.5-10.0)
[2022-09-04 10:51] LABS: Alanine Aminotransferase 38 U/L (6-50); Alkaline Phosphatase 69 U/L (38-126); Anion Gap 5 mmol/L (8-16); Aspartate Amino Transferase 29 U/L (17-59); Bilirubin,Total 0.5 mg/dL (0.2-1.3); Blood Urea Nitrogen 23 mg/dL (9-20); Calcium 8.7 mg/dL (8.4-10.2); Carbon Dioxide 28 mmol/L (22-30); Chloride 105 mmol/L (98-107); Estimated CRCL calculation 35 ml/min; Estimated Glomerular Filt Rate 42; Glucose 282 mg/dL (65-110); Potassium 4.5 mmol/L (3.4-5.0); Sodium 138 mmol/L (137-145)
[2022-09-04 10:57] LABS: Prothrombin Time 13.4 Seconds (11.1-14.7)
[2022-09-04 10:58] LABS: Partial Thromboplastin Time 30.7 SECONDS (22.3-36.8)
[2022-09-04] MEDS: SODIUM CHLORIDE 0.9% IV 1,000 ML 999 ML IV CONT (10:58)
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
[2022-09-04 11:21] LABS: Appearance Urine Clear (Clear); Bacteria Urine None Seen /hpf; Bilirubin Urine Negative (Negative); Blood Urine Negative (Negative); Color Urine Yellow (Yellow); Glucose Urine UA 3+ mg/dL (Negative); Ketones Urine Negative (Negative); Leukocyte Esterase Ur Negative LEU/UL (Negative); Nitrate Urine Negative (Negative); Non Pathogenic Casts 0-2; Protein Urine 1+ mg/dL (Negative); RBC Urine 0-2 /hpf (0-2); Squamous Epithelial Cell Urine None seen /hpf (Few); WBC Urine 0-5 /hpf; pH Urine 5.5 (5.0-9.0)
[2022-09-04 11:29] LABS: Add Urine Microscopic? YES
[2022-09-04] MEDS: HYDROmorphone HCL INJ (*CRX) 1 MG/ML SYR 0.5 MG IV PUSH (13:33)
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
--- NOTE | 2022-09-04 14:29 | WPDANESEPPF ---
Anes - Initial Pre Proc Eval Procedure: Operation Date: 09/04/22 14:15 Proposed Procedures p Cysto, RPG, Stone Ext, Stent Placement - Juan Mejia MD Date/Time: 09/04/22 14:29 Surgeon: Juan Meija MD Pre Op Diagnosis: CYSTO Patient Data Age: 77 Gender: M Height: 1.75 m Weight: 86 kg Last Vital Signs Temp 36.2 C L 09/04/22 09:53 Pulse 65 09/04/22 14:15 Resp 11 L 09/04/22 14:15 BP 136/84 09/04/22 14:15 Pulse Ox 97 09/04/22 14:15 O2 Del Method Room Air 09/04/22 09:53 Allergies Allergy/AdvReac Type Severity Reaction Status Date / Time alprazolam Allergy Intermediate Confusion Verified 09/04/22 09:52 zolpidem Allergy Intermediate Confusion Verified 09/04/22 09:52 lorazepam Allergy Unknown Confusion Verified 09/04/22 09:52 Home Medications Medication Instructions Recorded Confirmed Type aspirin 81 mg tablet 81 mg PO DAILY 11/13/21 11/13/21 History bupropion HCl 150 mg tablet,12 hr 150 mg PO BID 11/13/21 11/13/21 History sustained-release celecoxib 200 mg capsule 200 mg PO DAILY 11/13/21 11/13/21 History lisinopril 10 mg tablet 10 mg PO DAILY 11/13/21 11/13/21 History metformin 1,000 mg tablet 500 mg PO BID 11/13/21 11/13/21 History simvastatin 20 mg tablet 20 mg PO HS 11/13/21 11/13/21 History trazodone 150 mg tablet 150 mg PO HS 11/13/21 11/13/21 History melatonin 5 mg tablet 5 mg PO HS #90 tabs 11/16/21 Rx metoprolol tartrate 25 mg tablet 6.25 mg PO BID #60 tabs 11/16/21 Rx Laboratory Tests 09/04/22 09/04/22 10:35 11:06 WBC 7.2 K/mm3 (4.5-10.0) RBC 4.68 M/mm3 (4.6-6.20) Hgb 14.3 g/dL (14.0-18.0) Hct 42.7 % (42.0-52.0) MCV 91.2 fl (80-100) MCH 30.6 pg (26-34) MCHC 33.5 g/dl (32-36) RDW 12.2 % (11.5-14.5) Plt Count 183 k/mm3 (150-375) MPV 10.7 H fl (7.4-10.4) Immature Gran % (Auto) 0.6 H % (0-0.5) Neut % (Auto) 58.6 % (45.5-73.1) Lymph % (Auto) 24.0 % (18.3-44.2) [place] % (Auto) 7.8 % (2.6-8.5) Eos % (Auto) 8.4 H % (0-4.4) Baso % (Auto) 0.6 % (0.2-1.2) Lymph # (Auto) 1.72 K/mm3 (0.9-3.2) [place] # (Auto) 0.6 K/mm3 (0.1-0.6) Eos # (Auto) 0.6 H K/mm3 (0-0.3) Baso # (Auto) 0.0 K/mm3 (0.0-0.1) Abs Immat Gran (auto) 0.04 H K/mm3 (0.00-0.031) Absolute Neuts (auto) 4.2 K/mm3 (1.3-6.7) Absolute Nucleated RBC 0.0 K/mm3 (0.0-0.012) Nucleated RBC % 0.0 % (0.0-0.2) PT 13.4 Seconds (11.1-14.7) INR 1.0 APTT 30.7 SECONDS (22.3-36.8) Sodium 138 mmol/L (137-145) Potassium 4.5 mmol/L (3.4-5.0) Chloride 105 mmol/L (98-107) Carbon Dioxide 28 mmol/L (22-30) Anion Gap 5 L mmol/L (8-16) BUN 23 H mg/dL (9-20) Creatinine 1.60 H mg/dL (0.7-1.3) Estim Creat Clear Calc 35 ml/min Estimated GFR 42 L (59 - ) Glucose 282 H mg/dL (65-110) Calcium 8.7 mg/dL (8.4-10.2) Total Bilirubin 0.5 mg/dL (0.2-1.3) AST 29 U/L (17-59) ALT 38 U/L (6-50) Alkaline Phosphatase 69 U/L (38-126) Total Protein 7.0 g/dL (6.3-8.2) Albumin 4.0 g/dL (3.5-5.1) Urine Color Yellow (Yellow) Urine Appearance Clear (Clear) Urine pH 5.5 (5.0-9.0) Ur Specific [place] 1.020 (1.001-1.035) Urine Protein 1+ H mg/dL (Negative) Urine Glucose (UA) 3+ H mg/dL (Negative) Urine Ketones Negative mg/dL (Negative) Ur Blood (Man) Negative (Negative) Urine Nitrate Negative (Negative) Urine Bilirubin Negative (Negative) Urine Urobilinogen 1.0 mg/dL (<2.0) Leukocyte Esterase Rfl Negative WALDO/UL (Negative) Urine RBC 0-2 /hpf (0-2) Urine WBC 0-5 /hpf Ur Squamous Epith Cells None seen /hpf (Few) Urine Bacteria
[2022-09-04] MEDS: ceFAZolin 2 GM/D5W 50 ML 2 GM/50 ML BAG IVPB (14:54)
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
[2022-09-04] MEDS: LACTATED RINGERS 1,000 ML 30 ML IV CONT (15:25)
--- NOTE | 2022-09-04 15:30 | SUR.PHASEI ---
1525: arrives to PACU s/p cystoscopy. Respiratory: WNL. Oral airway is in. Patient VSS. FLACC-0. genitourinary: no abnormalitis.
[2022-09-04] MEDS: fentaNYL CITRATE INJ (*CRX) 100 MCG/2 ML VIAL 25 MCG IV PUSH ×4 (15:58→16:29)
[2022-09-04 16:03] LABS: Glucose Point of Care 222 mg/dl (65-105)
[2022-09-04 16:03] LABS: Glucose Point of Care 247 mg/dl (65-105)
--- NOTE | 2022-09-04 16:13 | W.PM.PROC2 ---
Procedure Note - Detailed Date of Procedure 09/04/22 Pre-op Diagnosis Obstruct uropathy,left proximal ureter calculu,VERONICA Post-op Diagnosis Same Procedure Performed cystoscopy, left retrograde pyelogram, left ureteral stent placement Surgeon Juan Mejia MD Anesthesia General Indications patient is a 77-year-old man with history of kidney stones presented emergency department today with several days of severe left flank pain on CT scan was found to have a 8 mm stone in the proximal left ureter with proximal hydronephrosis. Findings Normal urethra, significant BPH with trilobar coaptation and a moderately sized median lobe, moderate trabeculation of the bladder, mucosal lesions or other concerning findings within the bladder, orthotopic ureters, left retrograde pyelogram with slight J hooking at the level of the UVJ, filling defect in the mid ureter consistent with stone, proximal hydronephrosis with retained contrast from recent CT scan Description of Procedure after obtaining informed consent we proceeded to the operating room. The patient was placed in the supine position the OR table. SCD boots were placed. He was given dose of antibiotics. General anesthesia was induced. He was placed in lithotomy position and prepped and draped in usual sterile manner. We began by passing a well lubricated 22 [place] cystoscope per the urethra. We entered the bladder without difficulty. The bladder was emptied. We performed a full endoscopic evaluation of the bladder with the aforementioned findings. We then focused on the patient's left ureteral orifice. Attempt was made to cannulate this with a 5 [place] open-ended catheter, but due to median lobe and slightly oblique angle was not able to do this with these. Given this the orifice was cannulated with a angle tip wire it took a bit of effort to negotiate our way around the J-hook but were able to gain access more proximally within the ureter 5 [place] catheter was then extended over the wire into the distal ureter. The wire was briefly removed and retrograde pyelogram was performed demonstrating a filling defect in the proximal 3rd of the ureter consistent with patient's known stone with proximal hydronephrosis. Sensor wire was replaced and passed up to the level of stone there was initially mild resistance but the wire was able to eventually be able to sit be passed beyond the stone and up into an upper pole calyx. The 5 [place] catheter was passed over the wire proximal to the stone as well to dislodge the stone slightly. The catheter was then withdrawn. Then under visual and fluoroscopic guidance a 6 [place] variable length double-J stent was passed into an upper pole calyx around the course of the ureter and curled within the bladder after the wire was withdrawn. The stent was in good position and drained the kidney promptly with mild hydronephrotic drip. The bladder was then emptied. Completion x-rays confirmed the stent remained in place and the scope was withdrawn. This completed the procedure which the patient tolerated without apparent complication Implants 6 [place] variable length double-J ureteral stent Complications No immediate complications Condition Stable Disposition PACU ( patient will then go to floor will observe him overnight, will need outpatient follow-up for definitive stone management.)
[2022-09-04] MEDS: hydrALAZINE HCL 20 MG/ML VIAL 10 MG IV PUSH (16:16)
--- NOTE | 2022-09-04 16:43 | SUR.PHASEI ---
1643: Genitourinary: no change. respiratory: no change. VSS. Report given to Arleen CASTILLO ([address] [place] [address]).
--- NOTE | 2022-09-04 17:10 | ADMGEN ---
This patient, Max Talbot, was admitted to Medical Room 254-01. Patient/family oriented to hospital policies and general routines including ID bracelet, bed and alarms, visiting hours, pain management, procedures, bathroom and other care routines, personal items, smoking policy, room service/diet, and visiting hours. Information on how to activate the Rapid Response Team has been discussed. Patient/Family are encouraged to report perceived risks to care and to ask questions if they do not understand what they are told or what they should do.
[2022-09-04 17:42] LABS: Glucose Point of Care 265 mg/dl (65-105)
[2022-09-04] MEDS: INSULIN ASPART (*BKC) 100 UNITS/ML SUB-Q ×2 (17:45→21:05)
[2022-09-04] MEDS: traMADol HCL (*CRX) 25 MG TABLET PO (17:48)
[2022-09-04] MEDS: SODIUM CHLORIDE 0.9% IV 1,000 ML 100 ML IV CONT (18:17)
[2022-09-04 20:32] LABS: Glucose Point of Care 337 mg/dl (65-105)
[2022-09-04] MEDS: ACETAMINOPHEN 325 MG TABLET 650 MG PO (21:01)
[2022-09-04] MEDS: METOPROLOL TARTRATE 6.25 MG TABLET PO (21:58)
[2022-09-04] MEDS: QUEtiapine FUMARATE 100 MG TABLET PO (21:59)
[2022-09-04] MEDS: SIMVASTATIN 20 MG TABLET PO (21:59)
[2022-09-04] MEDS: HYDROcodone/acetaminophen (*CRX) 5-325 MG TABLET 1 TAB PO (21:59)
[2022-09-05] MEDS: SODIUM CHLORIDE 0.9% IV 1,000 ML 100 ML IV CONT (04:09)
[2022-09-05 04:45] VITALS: BP 125/70; PULSE 73; RESP 16; TEMP 36.6; O2SAT 97
[2022-09-05 05:15] LABS: Basophils Percent Auto 0.2 % (0.2-1.2); Eosinophils Absolute Auto 0.5 K/mm3 (0-0.3); Eosinophils Percent Auto 6.2 % (0-4.4); Hematocrit 40.7 % (42.0-52.0); Hemoglobin 13.6 g/dL (14.0-18.0); Immature Granulocyte Absolute 0.03 K/mm3 (0.00-0.031); Immature Granulocyte Percent A 0.4 % (0-0.5); Lymphocytes Absolute Auto 1.85 K/mm3 (0.9-3.2); Lymphocytes Percent Auto 22.2 % (18.3-44.2); Mean Corpuscular HGB Conc 33.4 g/dl (32-36); Mean Corpuscular Hemoglobin 30.5 pg (26-34); Mean Corpuscular Volume 91.3 fl (80-100); Mean Platelet Volume 10.9 fl (7.4-10.4); Monocytes Absolute Auto 0.6 K/mm3 (0.1-0.6); Monocytes Percent Auto 7.6 % (2.6-8.5); Neutrophils Absolute Auto 5.3 K/mm3 (1.3-6.7); Neutrophils Percent Auto 63.4 % (45.5-73.1); Platelet Count Result 188 k/mm3 (150-375); Red Blood Count 4.46 M/mm3 (4.6-6.20); White Blood Count 8.3 K/mm3 (4.5-10.0)
[2022-09-05 05:34] LABS: Alanine Aminotransferase 34 U/L (6-50); Albumin Level 3.3 g/dL (3.5-5.1); Alkaline Phosphatase 58 U/L (38-126); Anion Gap 6 mmol/L (8-16); Aspartate Amino Transferase 31 U/L (17-59); Bilirubin,Total 0.5 mg/dL (0.2-1.3); Blood Urea Nitrogen 18 mg/dL (9-20); Calcium 8.2 mg/dL (8.4-10.2); Carbon Dioxide 25 mmol/L (22-30); Chloride 106 mmol/L (98-107); Estimated CRCL calculation 40 ml/min; Estimated Glomerular Filt Rate 49; Glucose 203 mg/dL (65-110); Magnesium 1.8 mg/dL (1.6-2.3); Potassium 3.8 mmol/L (3.4-5.0); Sodium 137 mmol/L (137-145)
[2022-09-05 06:58] LABS: Hemoglobin A1C 8.9 % (<5.7)
--- NOTE | 2022-09-05 07:55 | PM.IMPN ---
Progress Note: A&P Assessment and Plan (1) Calculus of proximal left ureter: Code(s): N20.1 - Calculus of ureter Status: Acute Assessment and Plan: -Urology consulted. POD 1 cystoscopy with left ureteral stent placement -Cr is downtrending. Cr 1.6-->1.4 -Expect Cr to continue to return to baseline. Will plan to d/c today with follow up labs on Tuesday and plan for follow up with Dr Rivera. (2) Obstructive uropathy: Code(s): N13.9 - Obstructive and reflux uropathy, unspecified Status: Acute (3) Hydroureteronephrosis: Code(s): N13.30 - Unspecified hydronephrosis Status: Acute Assessment and Plan: -WBC 8.3, afebrile. -mild hydronephrosis associated with the obstructive stone, however there was never a white count so low indication to give PO antibiotics at discharge. Urine was also negative for infectious process. (4) Acute kidney injury: Code(s): N17.9 - Acute kidney failure, unspecified Status: Acute Assessment and Plan: down trending labs. Tolerating PO intake. (5) Left rib fracture: Code(s): S22.32XA - Fracture of one rib, left side, initial encounter for closed fracture Status: Acute Assessment and Plan: Medical management with pain medications and topical Lidoderm patches. (6) Type 2 diabetes mellitus: Code(s): E11.9 - Type 2 diabetes mellitus without complications Status: Acute Assessment and Plan: -holding home metformin. Hgb A1c 8.9. -accu checks and sliding scale insulin while admitted. -DM diet (7) Hypertension: Code(s): I10 - Essential (primary) hypertension Status: Acute Subjective Date/time seen: 09/05/22 07:55 Interval history: This is a 77 year old gentleman with a PMH of CAD, HTN, HLD, DM2, BRIA, and who is legally blind secondary to glaucoma. He presented to the ED after a fall several days ago which left him with left lower back pain. Imaging shows minimally displaced posterolateral fractures of the left 10th and 11th ribs and an obstructing 9 mm proximal ureteral stone. Urology was consult and he underwent cycstoscopy with left retrograde pyelogram with left ureteral stent placement with Dr Mejia. 7/2: Patient is seen this morning laying in bed with at the bedside. He says he feels great today, has no pain, and is ready to go home. Dr Mejia was just by and said from a urological stand point he could go. Patient states that he is urinating without difficultly and per his , his urine has been clear yellow since 0300. He has some mild discomfort to his left mid back where his rib fractures are but that is controlled with a Lidoderm patch. He denies any questions or concerns at this time. Review of Systems Review of Systems: Twelve systems were reviewed and are negative except for as per HPI. Exam Narrative: General: Nontoxic-appearing male in the semi-Barrera position in bed. Weight: 86 kg. BMI: 28.0. HEENT: PERRL, EOMI. Sclera anicteric. Tacky mucous membranes. Neck: Supple. Respiratory: Lungs are clear to auscultation bilaterally. Cardiovascular: Regular rate and rhythm with S1-S2. Chest: Faint bruise on the left lateral ribs, he is tender to palpation over this area. Gastrointestinal: Abdomen is soft and nondistended with positive bowel sounds. He is somewhat tender to palpation over the left flank and CVA area though there is bruising at the site as well. He positive bowel sounds. Skin: Warm and dry. No rash or lesions on limited exam. Extremities: No cyanosis, clubbing, or edema. Radial and pedal pulses intact. Neurological: Alert. Cranial nerves 2-12 are grossly intact. No gross focal deficits to casual conversation. Psychiatric: Pleasant and cooperative with normal mood and affect. Objective Data Vital Signs Vital Signs: Vital Signs - 24 hr 09/04/22 09:53 09/04/22 10:04 09/04/22 13:46 Temperature 97.1 F L Pulse Rate 6
[2022-09-05 08:07] LABS: Glucose Point of Care 237 mg/dl (65-105)
[2022-09-05 08:25] VITALS: PULSE 73
[2022-09-05] MEDS: ASPIRIN 81 MG CHEWABLE TABLET PO (08:25)
[2022-09-05] MEDS: METOPROLOL TARTRATE 6.25 MG TABLET PO (08:25)
[2022-09-05] MEDS: DULoxetine HCL 60 MG CAPSULE.DR PO (08:25)
[2022-09-05] MEDS: INSULIN ASPART (*BKC) 100 UNITS/ML SUB-Q ×2 (08:27→12:21)
[2022-09-05] MEDS: traMADol HCL (*CRX) 25 MG TABLET PO (08:36)
[2022-09-05] MEDS: LIDOCAINE 5% PATCH 1 PATCH TRANSDERM (08:39)
--- NOTE | 2022-09-05 10:17 | WPDUROPN2 ---
Progress Note: A&P Assessment and Plan (1) Calculus of proximal left ureter: Code(s): N20.1 - Calculus of ureter Status: Acute Assessment and Plan: Kidney stone -patient is status post left ureteral stent placement yesterday for large proximal ureteral stone, pain is significantly improved, has had no major events overnight. -from urologic perspective is okay for discharge today, patient counseled he should follow up with Dr. Rivera in the next couple weeks for definitive stone management, please give office contact number. - Please obtain KUB prior to discharge, I ordered, to evaluate radiopacity of stone plan appropriate intervention Time Spent With Patient Time: 10 mins Subjective Subjective Date/Time Seen: 09/05/22 10:17 Interval history: Overnight no major events, patient is sitting up in a chair and feeling much better today, he reports left-sided flank pain is significantly improved after stent placement, is voiding freely, reports urine is clear yellow. Exam Const: General: comfortable and no acute distress Resp: Effort & Inspection: normal respiratory effort Cardio: Rate: regular rate : General: Yes bladder normal to palpation Other: No CVA tenderness Objective Data Vital Signs Vital Signs: Vital Signs - 24 hr 09/04/22 13:46 09/04/22 14:01 09/04/22 14:15 Temperature Pulse Rate 63 65 65 Respiratory Rate 9 L 12 11 L Blood Pressure 136/84 Pulse Oximetry 94 95 97 Oxygen Delivery Oxygen Flow Rate 09/04/22 15:25 09/04/22 15:40 09/04/22 15:55 Temperature 36.7 C Pulse Rate 66 64 64 Respiratory Rate 18 12 12 Blood Pressure 164/76 H 159/84 H 189/85 H Pulse Oximetry 100 100 98 Oxygen Delivery Simple Face Mask Simple Face Mask Room Air Oxygen Flow Rate 6 6 09/04/22 15:51 09/04/22 16:10 09/04/22 16:18 Temperature Pulse Rate 64 66 69 Respiratory Rate 12 11 L 12 Blood Pressure 184/89 H 174/99 H 162/95 H Pulse Oximetry 95 95 95 Oxygen Delivery Room Air Room Air Room Air Oxygen Flow Rate 09/04/22 16:25 09/04/22 16:35 09/04/22 16:44 Temperature Pulse Rate 71 73 73 Respiratory Rate 12 12 13 Blood Pressure 151/78 H 138/86 159/77 H Pulse Oximetry 96 96 97 Oxygen Delivery Room Air Room Air Room Air Oxygen Flow Rate 09/04/22 17:30 09/04/22 19:44 09/04/22 21:58 Temperature 36.6 C Pulse Rate 84 84 Respiratory Rate 16 Blood Pressure 158/84 H Pulse Oximetry 98 Oxygen Delivery Room Air Oxygen Flow Rate 09/04/22 21:10 09/05/22 04:45 09/05/22 08:25 Temperature 36.6 C Pulse Rate 73 73 Respiratory Rate 16 Blood Pressure 125/70 Pulse Oximetry 97 Oxygen Delivery Room Air Oxygen Flow Rate Intake/Output Intake/Output: Intake & Output 09/02/22 09/03/22 09/04/22 09/05/22 23:59 23:59 23:59 23:59 Intake Total 1340 1570 Output Total 950 600 Balance 390 970 Meds/Results Medications: Active Medications Generic Name Dose Route Start Last Admin Trade Name Freq PRN Reason Stop Dose Admin Acetaminophen 650 mg 09/04/22 14:11 09/04/22 21:01 Acetaminophen 325 Mg Tablet PO 650 mg Q6H PRN Administration Mild Pain (1-3) or Fever Aspirin 81 mg 09/05/22 09:00 09/05/22 08:25 Aspirin 81 Mg Chewable Tablet PO 81 mg DAILY JOSEPHINE Administration Dextrose 12.5 gm 09/04/22 14:11 Dextrose 50% 25 Gm/50 Ml Syringe IV PUSH PRN PRN Hypoglycemia Protocol Duloxetine HCl 60 mg 09/05/22 09:00 09/05/22 08:25 Duloxetine Hcl 60 Mg Capsule.Dr PO 60 mg DAILY JOSEPHINE Administration Glucagon 1 mg 09/04/22 14:11 Glucagon For Inj 1 Mg Vial IM PRN PRN Hypoglycemia Protocol Glucose 15 gm 09/04/22 14:11 Glucose Oral Gel 15 Gm Of Glucse In 37.5 Gm Tube PO PRN PRN Hypoglycemia Protocol Hydromorphone HCl 0.5 mg 09/04/22 13:23 Hydromorphone Hcl Inj (*Crx) 1 Mg/Ml Syr IV PUSH Q4H PRN Pain Rated 7-10 Sodium Chlo
[2022-09-05 12:32] LABS: Glucose Point of Care 331 mg/dl (65-105)
--- NOTE | 2022-09-05 13:11 | PM.DS ---
DS: Admitting Diagnosis Discharge Date Today, Tuesday Admitting Diagnosis Acute, obstructing nephrolithiasis with mild hydronephrosis DS: Discharge Diagnosis Discharge Diagnosis (1) Calculus of proximal left ureter: Code(s): N20.1 - Calculus of ureter Status: Acute Assessment and Plan: -Urology consulted. POD 1 cystoscopy with left ureteral stent placement -Cr is downtrending. Cr 1.6-->1.4 -Expect Cr to continue to return to baseline. Will plan to d/c today with follow up labs on Tuesday and plan for follow up with Dr Rivera. (2) Obstructive uropathy: Code(s): N13.9 - Obstructive and reflux uropathy, unspecified Status: Acute (3) Hydroureteronephrosis: Code(s): N13.30 - Unspecified hydronephrosis Status: Acute Assessment and Plan: -WBC 8.3, afebrile. -mild hydronephrosis associated with the obstructive stone, however there was never a white count so low indication to give PO antibiotics at discharge. Urine was also negative for infectious process. (4) Acute kidney injury: Code(s): N17.9 - Acute kidney failure, unspecified Status: Acute Assessment and Plan: down trending labs. Tolerating PO intake. (5) Left rib fracture: Code(s): S22.32XA - Fracture of one rib, left side, initial encounter for closed fracture Status: Acute Assessment and Plan: Medical management with pain medications and topical Lidoderm patches. (6) Type 2 diabetes mellitus: Code(s): E11.9 - Type 2 diabetes mellitus without complications Status: Acute Assessment and Plan: -holding home metformin. Hgb A1c 8.9. -accu checks and sliding scale insulin while admitted. -DM diet (7) Hypertension: Code(s): I10 - Essential (primary) hypertension Status: Acute Plan Plan to discharge today with appropriate follow up with Dr Rivera in 1 week. Also will write for lab work for Tuesday, September 08 to ensure Cr back to baseline. DS: Summary Hospital Course Reason for hospitalization: kidney stones Hospital Course: Interval history: This is a 77 year old gentleman with a PMH of CAD, HTN, HLD, DM2, BRIA, and who is legally blind secondary to glaucoma. He presented to the ED after a fall several days ago which left him with left lower back pain. Imaging shows minimally displaced posterolateral fractures of the left 10th and 11th ribs and an obstructing 9 mm proximal ureteral stone. Urology was consult and he underwent cycstoscopy with left retrograde pyelogram with left ureteral stent placement with Dr Mejia. 09/05: Patient is seen this morning laying in bed with at the bedside. He says he feels great today, has no pain, and is ready to go home. Dr Mejia was just by and said from a urological stand point he could go. Patient states that he is urinating without difficultly and per his , his urine has been clear yellow since 299. He has some mild discomfort to his left mid back where his rib fractures are but that is controlled with a Lidoderm patch. He denies any questions or concerns at this time. Status at Discharge Cognitive/behavioral status at discharge: Independent Time Spent with Patient Time attestation: Total time spent providing and/or coordinating discharge services:32 Exam Narrative: General: Nontoxic-appearing male in the semi-Barrera position in bed. Weight: 86 kg. BMI: 28.0. HEENT: PERRL, EOMI. Sclera anicteric. Tacky mucous membranes. Neck: Supple. Respiratory: Lungs are clear to auscultation bilaterally. Cardiovascular: Regular rate and rhythm with S1-S2. Chest: Faint bruise on the left lateral ribs, he is tender to palpation over this area. Gastrointestinal: Abdomen is soft and nondistended with positive bowel sounds. He is somewhat tender to palpation over the left flank and CVA area though there is bruising at the site as well. He positive bowel sounds. Skin: Warm and dry. No ra
[2022-09-05 13:38] VITALS: BP 143/76; PULSE 73; RESP 16; TEMP 36.6; O2SAT 98
== END 2022-09-05 14:45 | disposition home or self-care (01) ==
LOC: ANHED 10:21 → ANHSURGERY 13:03 → ANH2MED 09-05 13:25 → ANHSURGERY 09-08 08:54 → ANH2MED 09-08 08:55
PROVIDERS: Physician Assistant; Urology; Admitting Provider Internal Medicine; Emergency Provider General Practice; PCP Family Medicine; Visit Provider Internal Medicine
PROC: (CPT 52352; principal; 2022-09-04 14:15)
DX: N13.2 Hydronephrosis with renal and ureteral calculous obstruction (principal); N17.9 Acute kidney failure, unspecified; S30.1XXA Contusion of abdominal wall, initial encounter; S22.42XA Multiple fractures of ribs, left side, initial encounter for closed fracture; W01.0XXA Fall on same level from slipping, tripping and stumbling without subsequent striking against object, initial encounter; E11.9 Type 2 diabetes mellitus without complications; I10 Essential (primary) hypertension; R39.11 Hesitancy of micturition; I25.10 Atherosclerotic heart disease of native coronary artery without angina pectoris; Z95.1 Presence of aortocoronary bypass graft; R32 Unspecified urinary incontinence; F32.A Depression, unspecified; H40.9 Unspecified glaucoma; K76.0 Fatty (change of) liver, not elsewhere classified; E78.5 Hyperlipidemia, unspecified; I25.2 Old myocardial infarction; G47.33 Obstructive sleep apnea (adult) (pediatric); R79.89 Other specified abnormal findings of blood chemistry; Z87.891 Personal history of nicotine dependence; Z79.82 Long term (current) use of aspirin; Z79.84 Long term (current) use of oral hypoglycemic drugs; Z79.899 Other long term (current) drug therapy
CPT/HCPCS: 52332; 36415; 74018; 74177; 74420; 80053; 81001; 82948; 83036; 83735; 85025; 85610; 85730; 96361; 96374; 96375; 99285; A9270; C1758; C1769; C2617; G0378; J0360; J0690; J1170; J1815; J2270; J2405; J2704; J3010; J7030; J7120; Q9967

== ENCOUNTER 2022-09-17 09:22 | Outpatient (CLI) | payer MEDICARE, SELFPAY ==
[2022-09-17 11:03] LABS: Partial Thromboplastin Time 33.3 SECONDS (22.3-36.8)
== END 2022-09-17 09:23 | disposition home or self-care (01) ==
PROVIDERS: PCP Family Medicine; Visit Provider Urology
DX: Z01.810 Encounter for preprocedural cardiovascular examination (principal); N20.1 Calculus of ureter
CPT/HCPCS: 36415; 85610; 85730; 87086; 87088